=== PATIENT | male | born 1970 | race Caucasian/White ===

== ENCOUNTER 2016-08-27 08:28 | Day surgery (SDC) | payer BC ==
[~2016-08-27] VITALS: Ht 177.8 cm; Wt 136.1 kg
[2016-08-27] MEDS ORDERED: LIDOCAINE 1% INJ 20 ML (XYLOCAINE) VIAL ONE (08:41)
[2016-08-27] MEDS ORDERED: HEParin (CATH LAB) 2,000 ML IV ONE (08:41)
[2016-08-27] MEDS ORDERED: NS IV 1000 ML 1,000 ML ONE (08:41)
[2016-08-27 09:13] VITALS: BP 125/78
[2016-08-27 09:15] LABS: RED BLOOD COUNT 4.8 10^6/uL (4.35-5.85); WHITE BLOOD COUNT 6.8 10^3/uL (4.3-11.0)
[2016-08-27 09:28] LABS: INR 1.1 (0.8-1.4); PROTHROMBIN TIME PATIENT 13.5 SEC (12.2-14.7)
[2016-08-27] MEDS ORDERED: NS IV 1000 ML 1,000 ML IV SCH ×2 (09:30→12:47)
[2016-08-27 09:39] LABS: ALANINE AMINOTRANSFERASE 42 U/L (0-55); ALBUMIN 4.2 G/DL (3.2-4.5); ANION GAP 10 MMOL/L (5-14); ASPARTATE AMINO TRANSFERASE 25 U/L (5-34); BILIRUBIN,TOTAL 0.2 MG/DL (0.1-1.0); BLOOD UREA NITROGEN 13 MG/DL (7-18); BUN/CREATININE RATIO 13; CALCIUM 9.1 MG/DL (8.5-10.1); CARBON DIOXIDE 26 MMOL/L (21-32); CHLORIDE 104 MMOL/L (98-107); CHOLESTEROL 214 MG/DL (< 200); DIRECT LDL 141 MG/DL (1-129); GFR ESTIMATED > 60; GLUCOSE 132 MG/DL (70-105); POTASSIUM 4.2 MMOL/L (3.6-5.0); SODIUM 140 MMOL/L (135-145); TOTAL PROTEIN 6.9 G/DL (6.4-8.2); TRIGLYCERIDES 213 MG/DL (<150); VLDL CHOLESTEROL 43 MG/DL (5-40)
[2016-08-27] MEDS ORDERED: DULO60CA6 PO (09:50)
[2016-08-27] MEDS ORDERED: CLON0.5T3 PO (09:50)
[2016-08-27] MEDS ORDERED: MELA1TAB10 PO (09:50)
[2016-08-27] MEDS ORDERED: GEMF600T3 PO (09:50)
[2016-08-27] MEDS ORDERED: PRAZ1CAP2 PO (09:50)
[2016-08-27] MEDS ORDERED: MIDAZOLAM 5 MG/5 ML (VERSED) VIAL ONE (11:46)
[2016-08-27] MEDS ORDERED: diphenhydrAMINE 50 MG/ML INJ (BENADRYL) ONE (11:47)
[2016-08-27] MEDS ORDERED: fentaNYL INJECTION 100 MCG/2 ML AMP ONE (11:47)
--- NOTE | 2016-08-27 12:21 | Cardiac Procedure Note-CS/ASA ---
Pre-Procedure Note Pre-Op Procedure Note H&P Reviewed The H&P was reviewed, patient examined and no changes noted. Date H&P Reviewed: Aug 27, 2016 Time H&P Reviewed: 12:20 Conscious Sedation Pre-Proced Time Reviewed: 12:20 ASA Class: 2 Airway Mallampati Classification: (sun'aq appropriate class) I. II. III, IV Lungs Heart ASA score ASA 1: a normal healthy patient ASA 2: a patient with a mild systemic disease (mid diabetes, controlled hypertension, obesity ASA 3: a patient with a severe systemic disease that limits activity (angina , COPD, prior Myocardial infarction) ASA 4: a patient with an incapacitating disease that is a constant threat to life (CHF, renal failure) ASA 5: a moribund patient not expected to survive 24 hrs. (ruptured aneurysm) ASA 6: a declared brain patient whose organs are being harvested. For emergent operations, add the letter E after the classification Grade 2 Sedation Plan: Analgesia, Amnesia, Plan communicated to team members, Discussed options with patient/fam, Discussed risks with patient/fam Note The patient is an appropriate candidate to undergo the planned procedure, sedation, and anesthesia. The patient immediately re-assessed prior to indication. DARIUS EAGLE MD FACP FAC CCDS Aug 27, 2016 12:21
[2016-08-27] MEDS ORDERED: ATOR20TA66 PO (12:50)
--- NOTE | 2016-08-27 12:51 | Discharge Inst-Post CATH ---
Discharge Inst-CATH Post Cardiac Cath D/C Inst Follow Up/Plan F/u with Dr Valente in 4-5 weeks CARDIAC CATH DISCHARGE INSTRUCTIONS *Hold Metformin for 48 hours post heart cath. ACTIVITY * Go Home directly and rest. * Limit activity of the leg (or wrist if it was used) for 7 days including aerobics, swimming, jogging, bicycling, etc. * Restrict stair-climbing for 7 days if possible, if not, climb up with your non -cath leg, then bring together on the same step. * Avoid lifting, pushing, pulling or excessive movement of the affected extremity for 7 days. * Customary sexual activity may be resumed after 2 days-use caution not to use a position that strains or causes pain to the affected extremity. * No driving for 24 hours. * NO SMOKING. * Avoid straining for bowel movements for 7 days. * Gentle walking on level ground is allowed. * Returning to work will depend on the type of procedure and the results. Your doctor will discuss this with you. CALL YOUR DOCTOR FOR ANY OF THE FOLLOWING: *If bleeding from the puncture site occurs- Apply gentle pressure to site with clean cloth and call your doctor or EMS. * If a knot or lump forms under the skin, increases in size, or causes pain. * If bruising appears to be worsening or moving further down your leg instead of disappearing. * Temperature above 101 F. CARE OF YOUR GROIN INCISION; * Bruising or purple discoloration of the skin near the puncture site is common. * You may shower only, no bathtub bathing for 5 days. Be careful to avoid slipping as your leg may feel stiff. * If a closure device was used on your femoral artery, please see the attached guide regarding care of the device and your leg. * REMOVE the dressing from your groin the next day after your procedure in the shower. CARE OF YOUR WRIST INCISION; * Bruising or purple discoloration of the skin near the puncture site is common. * You may shower. * DO NOT submerge wrist. * Remove dressing in 24 hours. DARIUS VALENTE MD [facility]S Aug 27, 2016 12:51
--- NOTE | 2016-08-27 12:52 | Discharge Inst-Cardiology ---
Discharge Inst-Cardiac Discharge Medications New Medications: Atorvastatin Calcium (Atorvastatin Calcium) 20 Mg Tablet 20 MG PO DAILY, #30 TAB 5 Refills Continued Medications: Clonazepam (Clonazepam) 0.5 Mg Tablet 0.25-0.5 MG PO BID PRN for ANXIETY, TAB TAKES 1/2 TO 1 (0.5MG) TABLET Duloxetine HCl (Cymbalta) 60 Mg Capsule.dr 60 MG PO DAILY, CAP Melatonin/Pyridoxine (Melatonin 3 mg Tablet) 1 Each Tablet 3 MG PO HS PRN for SLEEP, TAB Prazosin HCl (Prazosin HCl) 1 Mg Capsule 1-2 MG PO HS, CAP Discontinued Medications: Gemfibrozil (Gemfibrozil) 600 Mg Tablet 600 MG PO BID, TAB Orders-Post D/C & Referrals Pneu Vac Indicated: Yes DARIUS EAGLE MD FACP FAC CCDS Aug 27, 2016 12:52
[2016-08-27 13:00] VITALS: BP 114/70
[2016-08-27] MEDS ORDERED: PATIENT MAY USE OWN MEDS, ALL PO SCH (13:00)
--- NOTE | 2016-08-28 07:01 | CARDIAC CATHETERIZATION ---
DATE OF SERVICE: 08/27/2016 HISTORY OF PRESENT ILLNESS: The patient is a 45-year-old man who has multiple coronary artery disease risk factors and who continues to have chest discomfort and has had significant concern that he might have obstructive coronary artery disease and had requested a cardiac catheterization. Given all the data, we felt that cardiac catheterization was appropriate and informed consent was obtained. PROCEDURE: He was brought to the cardiac catheterization laboratory in a fasting state. Right groin was prepared and draped in the usual sterile fashion. Lidocaine 1% local anesthesia, modified Seldinger technique was used to advance a 5-Finnish sheath in right femoral artery. A 5-Finnish JL4 catheter, left coronary angiography. A 5-Finnish JR4 catheter, right coronary angiography. 5-Finnish pigtail catheter, left heart catheterization, left ventricular angiography. The pigtail catheter was pulled back to the aortic arch and aortic arch angiography was performed. The pigtail catheter was removed. Angiography to the right femoral artery was carried out through sheath. Mynx was used to achieve hemostasis. He tolerated the procedure well. HEMODYNAMICS: Left ventricular end-diastolic pressure following coronary angiography was 6 mmHg. There was no significant pressure gradient on pullback across the aortic valve. Ascending aortic pressure was 106/74 with a mean of 90 mmHg. CORONARY ANGIOGRAPHY: Left main coronary artery, left circumflex artery, right coronary artery are all angiographically normal. No significant disease is seen. Left coronary system seems to have a slightly sluggish flow. There is no obstructive disease. LEFT VENTRICULAR ANGIOGRAPHY: Left ventricular angiography was carried out in right anterior oblique projection. Global left ventricular systolic function normal. No regional wall motion abnormality was seen. There does not appear to be any significant mitral regurgitation. Left ventricular ejection fraction is approximately 55%-60%. AORTIC ARCH ANGIOGRAPHY: Aortic arch angiography did not indicate any significant thoracic aortic aneurysm or dissection. The neck arteries, to the extent identified, do not exhibit any significant disease. CONCLUSION: 1. Angiographically normal coronary arteries. 2. Normal global systolic function with ejection fraction of 55%-60%. 3. Normal left ventricular end-diastolic pressure. 4. No evidence of any thoracic aortic aneurysm or dissection. DISCUSSION AND RECOMMENDATIONS: Based on results of the study, chest discomfort does not appear to be of cardiac origin. Continuing risk factor modification is advised. Job ID: [id number] DocumentID: [id number] Dictated Date: 08/27/2016 12:41:34 [employer] Date: 08/28/2016 04:32:00 Dictated By: DARIUS EAGLE MD, MA, FACP, FACC,
== END 2016-08-27 16:00 | disposition home or self-care (01) ==
LOC: CATH 08:28 → ICU 13:00 → CATH 16:00 → ENPENDDIS 16:00
PROVIDERS: ATTEND Nurse Practitioner Family
DX: R07.89 Other chest pain (principal); E66.01 Morbid (severe) obesity due to excess calories; G47.33 Obstructive sleep apnea (adult) (pediatric); Z82.49 Family history of ischemic heart disease and other diseases of the circulatory system; Z79.899 Other long term (current) drug therapy; Z68.41 Body mass index [BMI] 40.0-44.9, adult; Z87.891 Personal history of nicotine dependence
CPT/HCPCS: 36221; 36415; 80053; 80061; 85027; 85610; 85730; 87081; 93458

== ENCOUNTER → 2016-09-02 | Outpatient (CLI) | payer BC ==
[~2016-09-02] MED LIST: ATOR20TA66 PO; CLON0.5T3 PO; DULO60CA6 PO; GEMF600T3 PO; MELA1TAB10 PO; PRAZ1CAP2 PO
--- NOTE | 2016-09-02 14:49 | Diagnostic Imaging Report ---
EXAMINATION: Ultrasound of the right groin/arterial vascular. INDICATION: Pain in the right groin. History of cardiac catheterization 1 week ago. FINDINGS: The right common femoral artery demonstrates normal flow with triphasic waveforms. The proximal SFA is also patent with triphasic waveforms. There is a normal venous waveform in the common femoral vein which is patent. A tiny hematoma in the right groin measuring 2 x 1.5 x 1 cm is seen. No pseudoaneurysm or evidence of fistula. IMPRESSION: No pseudoaneurysm or evidence of AV fistula. Dictated by: Dictated on workstation # [id number]
== END ==
LOC: RAD 12:59
PROVIDERS: ATTEND Nurse Practitioner Family
DX: R10.30 Lower abdominal pain, unspecified (principal); Z98.890 Other specified postprocedural states
CPT/HCPCS: 93926